=== PATIENT | female | born 1970 | race Caucasian/White ===

== ENCOUNTER 2018-09-03 15:16 | Emergency (ER) | payer MEDICAID ==
[~2018-09-03] VITALS: Wt 74.3 kg
[2018-09-03 16:15] VITALS: BP 114/58; PULSE 68; RESP 20
[2018-09-03] MEDS ORDERED: FAMO-96 PO (19:03)
[2018-09-03] MEDS ORDERED: ONDA8TAB14 PO (19:03)
--- NOTE | 2018-09-03 19:03 | ERD ---
ER Documentation Chief Complaint Chief Complaint rlq pain w n/v/d, sent by clinic HPI Is a 48-year-old female presents for relation of right lower quadrant pain, associated with nausea and vomiting and diarrhea, which is been ongoing for the last week. Symptoms are worsened by food, there are no alleviating or aggravating factors, she has not had a fever. She has not had chest pain or shortness of breath, her clinic Center over to be evaluated for appendicitis. ROS All systems reviewed and are negative except as per history of present illness. Medications Home Meds Active Scripts Ondansetron (Ondansetron Odt) 8 Mg Tab.rapdis, 8 MG PO Q6H PRN for NAUSEA AND/OR VOMITING, #10 TAB Prov:ALINA SHAIKH MD 09/03/18 Famotidine* (Pepcid*) 20 Mg Tablet, 20 MG PO BID for 4 Days, TAB Prov:ALINA SHAIKH MD 09/03/18 Allergies Allergies: Coded Allergies: Penicillins (Unverified Allergy, Unknown, 09/03/18) Sulfa (Sulfonamide Antibiotics) (Unverified Allergy, Unknown, 09/03/18) amoxicillin (Unverified Allergy, Unknown, 09/03/18) cephalexin (Unverified Allergy, Unknown, 09/03/18) codeine (Verified Allergy, Unknown, 09/03/18) ALL MEDICATIONS WITH CODEINE mepivacaine (Unverified Allergy, Unknown, 09/03/18) Uncoded Allergies: ANESTHESIA (Allergy, Unknown, 09/03/18) CAINS (Allergy, Unknown, 09/03/18) ANYTHING WITH VELAZQUEZ PMhx/Soc Medical and Surgical Hx: pt denies Medical Hx, pt denies Surgical Hx History of Surgery: No Anesthesia Reaction: No Hx Neurological Disorder: No Hx Respiratory Disorders: No Hx Cardiac Disorders: No Hx Psychiatric Problems: No Hx Miscellaneous Medical Probl: No Hx Alcohol Use: No Hx Substance Use: No Hx Tobacco Use: No Smoking Status: Never smoker Physical Exam Vitals Vital Signs Date Temp Pulse Resp B/P (MAP) Pulse Ox O2 O2 Flow FiO2 Time Delivery Rate 09/03/18 68 20 114/58 99 Room Air 16:15 (76) 09/03/18 98.7 73 20 114/58 99 15:19 (76) Physical Exam Const: No acute distress Head: Atraumatic Eyes: Normal Conjunctiva ENT: Normal External Ears, Nose and Mouth. Neck: Full range of motion. No meningismus. Resp: Clear to auscultation bilaterally Cardio: Regular rate and rhythm, no murmurs Abd: Soft, mild tenderness right lower quadrant, non distended, no rebound or guarding. Normal bowel sounds Skin: No petechiae or rashes Back: No midline or flank tenderness Ext: No cyanosis, or edema Neur: Awake and alert Psych: Normal Mood and Affect Result Diagram: 09/03/18 1701 09/03/18 1701 Results 24 hrs Laboratory Tests Test 09/03/18 14:23 09/03/18 17:01 Urine Color STRAW Urine Clarity CLEAR Urine pH 7.0 Urine Specific [place] 1.004 Urine Ketones NEGATIVE mg/dL Urine Nitrite NEGATIVE mg/dL Urine Bilirubin NEGATIVE mg/dL Urine Urobilinogen NEGATIVE mg/dL Urine Leukocyte Esterase NEGATIVE [place]/ul Urine Hemoglobin NEGATIVE mg/dL Urine Glucose NEGATIVE mg/dL Urine Total Protein NEGATIVE mg/dl Urine Test NEGATIVE White Blood Count 7.9 10^3/ul Red Blood Count 3.91 10^6/ul Hemoglobin 12.1 g/dl Hematocrit 37.2 % Mean Corpuscular Volume 95.1 fl Mean Corpuscular Hemoglobin 30.9 pg Mean Corpuscular Hemoglobin Concent 32.5 g/dl Red Cell Distribution Width 12.6 % Platelet Count 275 10^3/UL Mean Platelet Volume 10.0 fl Immature Granulocytes % 0.100 % Neutrophils % 60.2 % Lymphocytes % 22.2 % Monocytes % 8.2 % Eosinophils % 8.4 % Basophils % 0.9 % Nucleated Red Blood Cells % 0.0 /100WBC Immature Granulocytes # 0.010 10^3/ul Neutrophils # 4.7 10^3/ul Lymphocytes # 1.8 10^3/ul Monocytes # 0.7 10^3/ul Eosinophils # 0.7 10^3/ul Basophils # 0.1 10^3/ul Nucleated Red Blood Cells # 0.0 10^3/ul Prothrombin Time 12.7 Sec Prothrombin Time Ratio 1.0 INR International Normalized Ratio 0.94 Sodium Level 138 mmol/L Potassium Level 3.8 mmol/L Chloride Level 103 mmol/L Carbon Dioxide Level 24 mmol/L Anion Gap 11 Blood Urea Nitrogen 9 mg/dl Creatinine 0.79 mg/dl Est Glomerular Filtrat Rate mL/min > 60 mL/min Glucose Level 85 mg/dl Calcium Level 9.4 mg/dl Total Bilirubin 0.4 mg/dl Direct Bilirubin 0.00 mg/dl Indirect Bilirubin 0.4 mg/dl Aspartate Amino Transf (AST/SGOT) 21 IU/L Alanine Aminotransferase (ALT/SGPT) 15 IU/L Alkaline Phosphatase 68 IU/L Total Protein 7.2 g/dl Albumin 4.2 g/dl Globulin 3.00 g/dl Albumin/Globulin Ratio 1.40 Lipase 101 U/L Procedures/MDM 48-year-old female presents with abdominal pain. On exam she had no peritoneal signs, her vital signs remained stable in the ED, she did not endorse any urinary symptoms, and did not have any pelvic pain, primary concern was to evaluate for appendicitis, thus a CT abdomen pelvis was ordered. Her laboratory work did not show any evidence of leukocytosis, and she had no anion gap acidosis. The patient had an argument, with our nursing team, and wished to leave AGAINST MEDICAL ADVICE prior to the resulting of her CT scan. The patient has made the decision to leave this Emergency Department and any ongoing care against the advice of the emergency physician. The patient has been informed of and verbalized understanding of the inherent risks of this decision, including , disability and worsening of her condition. The patient explained to me the reason for wanting to sign out against medical advice which was that she was upset, over the argument]. The patient was given alternative therapeutic options including getting a call back for her CT results. The patient has the capacity to make this decision and accepts the responsibility of leaving at this time. The patient and all necessary parties have been advised that the patient may return at any time for further evaluation or treatment. The patient's condition at time of discharge is stable. Furthermore I later contacted the patient, once her CT results were back, we spoke by phone, informed her of the ovarian cyst, the patient states that she had been planning to follow-up with her station tender. Otherwise she was thankful for the call, no evidence of acute appendicitis was noted. EKG: Rate/Rhythm: Normal Sinus Rhythm QRS, ST, T-waves: No changes consistent w/ acute ischemia Impression: No evidence of ischemia or arrhythmia Departure Diagnosis: Primary Impression: Abdominal pain Abdominal location: right lower quadrant Qualified Codes: R10.31 - Right lower quadrant pain Condition: Stable Patient Instructions: [place] Form- 1 Additional Instructions: Call your primary care doctor TOMORROW for an appointment during the next 2-3 days.See the doctor sooner or return here if your condition worsens before your appointment time. ALINA SHAIKH MD Sep 03, 2018 19:03
== END 2018-09-03 19:00 | disposition left against medical advice (07) ==
LOC: E/R 15:16
DX: R10.31 Right lower quadrant pain (principal); R11.2 Nausea with vomiting, unspecified
CPT/HCPCS: 74176; 80053; 81003; 83690; 84703; 85025; 85610; 93005; Z7502